=== PATIENT | female | born 1975 | race Caucasian/White ===

== ENCOUNTER 2017-03-26 21:39 | Inpatient (IN) | payer OTHER ==
[~2017-03-26] VITALS: Ht 162.6 cm; Wt 67.1 kg
[2017-03-26] MEDS ORDERED: LISINOPRIL20 MG PO (23:22)
[2017-03-26] MEDS ORDERED: CATAPRES 0.1MG0.1 MG PO (23:22)
[2017-03-26] MEDS ORDERED: IBUPROFEN600 MG PO (23:23)
[2017-03-26] MEDS ORDERED: NEURONTIN 400400 MG PO (23:23)
[2017-03-26] MEDS ORDERED: VENTOLIN HFA 66.7 GM INH (23:24)
[2017-03-27 03:48] LABS: HEMOGLOBIN 15.4 gm/dl (12.3-15.3); RED BLOOD COUNT 5.15 M/UL (4.00-5.10); WHITE BLOOD COUNT 18.4 K/UL (4.5-11.0)
[2017-03-27 04:45] LABS: BUN/CREATININE RATIO 20 (0-10)
[2017-03-28 04:28] LABS: HEMOGLOBIN 13.8 gm/dl (12.3-15.3)
[2017-03-28 04:39] LABS: RED BLOOD COUNT 4.63 M/UL (4.00-5.10); WHITE BLOOD COUNT 11.9 K/UL (4.5-11.0)
[2017-03-28 04:43] LABS: BUN/CREATININE RATIO 20 (0-10)
[2017-03-28] MEDS ORDERED: ASPIRIN EC81 MG PO (10:14)
[2017-03-28] MEDS ORDERED: LIPITOR TAB 2020 MG PO (10:15)
[2017-03-28] MEDS ORDERED: METOPROLOL TART25 MG PO (10:18)
[2017-03-28] MEDS ORDERED: NICOTINE PATCH1 EAC1 TD (10:18)
[2017-03-28] MEDS ORDERED: BRILINTA90 MG PO (10:19)
[2017-03-28] MEDS ORDERED: NITROSTAT0.4 MG SL (10:20)
== END 2017-03-28 13:34 | disposition home or self-care (01) | DRG 247 ==
LOC: CCU 21:39 → ZRECOF 22:49 → CCU 22:59
PROVIDERS: ADMIT Internal Medicine
PROC: 027034Z Dilation of Coronary Artery, One Artery with Drug-eluting Intraluminal Device, Percutaneous Approach (ICD-10-PCS; principal; 2017-03-26)
PROC: 3C1ZX8Z Irrigation of Indwelling Device using Irrigating Substance, External Approach (ICD-10-PCS; principal; 2017-03-26)
PROC: 02C03ZZ Extirpation of Matter from Coronary Artery, One Artery, Percutaneous Approach (ICD-10-PCS; principal; 2017-03-26)
PROC: B2111ZZ Fluoroscopy of Multiple Coronary Arteries using Low Osmolar Contrast (ICD-10-PCS; principal; 2017-03-26)
PROC: 4A023N7 Measurement of Cardiac Sampling and Pressure, Left Heart, Percutaneous Approach (ICD-10-PCS; principal; 2017-03-26)
PROC: B2151ZZ Fluoroscopy of Left Heart using Low Osmolar Contrast (ICD-10-PCS; principal; 2017-03-26)
DX: I21.02 ST elevation (STEMI) myocardial infarction involving left anterior descending coronary artery (principal); I10 Essential (primary) hypertension; F17.210 Nicotine dependence, cigarettes, uncomplicated; E78.5 Hyperlipidemia, unspecified; M54.9 Dorsalgia, unspecified; J44.9 Chronic obstructive pulmonary disease, unspecified; Z79.899 Other long term (current) drug therapy; Z91.14 Patient's other noncompliance with medication regimen; I25.10 Atherosclerotic heart disease of native coronary artery without angina pectoris; K21.9 Gastro-esophageal reflux disease without esophagitis; Z82.49 Family history of ischemic heart disease and other diseases of the circulatory system
CPT/HCPCS: ECHO; 36415; 71010; 80048; 80061; 82550; 82553; 83036; 84484; 85027; 85347; 93005; 93306; C1725; C1757; C1769; C1874; C1887; C9600; J0583; J1644; J1650; J2250; J3010; J7030; J7040; Q9965

== ENCOUNTER 2021-05-01 12:12 | Emergency (ER) | payer OTHER ==
[~2021-05-01 12:12] MED LIST: ASPIRIN EC81 MG PO; BRILINTA90 MG PO; CATAPRES 0.1MG0.1 MG PO; IBUPROFEN600 MG PO; LIPITOR TAB 2020 MG PO; LISINOPRIL20 MG PO; METOPROLOL TART25 MG PO; NEURONTIN 400400 MG PO; NICOTINE PATCH1 EAC1 TD; NITROSTAT0.4 MG SL; VENTOLIN HFA 66.7 GM INH
== END 2021-05-01 13:54 | disposition left against medical advice (07) ==
LOC: ER1 12:12
DX: Z53.21 Procedure and treatment not carried out due to patient leaving prior to being seen by health care provider (principal)